=== PATIENT | male | born 1945 | race Caucasian/White ===

== ENCOUNTER 2022-03-27 11:55 | Day surgery (SDC) | payer OTHER, SELFPAY ==
[2022-03-27 12:10] VITALS: BP 130/96; PULSE 78; RESP 16; TEMP 36.7; O2SAT 100
--- NOTE | 2022-03-27 12:25 | W.ANESPRE ---
General Info Date of Service Date Performed: 03/27/22 Height: 5 ft 6 in Weight: 78.471 kg Body Mass Index (BMI): 27.9 Surgical Procedure: Operation Date: 03/27/22 15:40 Proposed Procedure Side Surgeon p Cataract Extraction with IOL Implant Left Daryn Rosa MD Meds Allergies and Home Medications Allergies Allergy/AdvReac Type Severity Reaction Status Date / Time codeine Allergy Severe Other (See Verified 03/27/22 12:08 Comment) spider venom Allergy Severe Anaphylaxis Verified 03/27/22 12:08 Home Medication Medication Instructions Recorded ascorbic acid (vitamin C) 1,000 mg 1 mg PO DAILY 03/23/22 capsule aspirin 81 mg tablet,delayed 81 mg PO DAILY 03/23/22 release folic acid 1 mg tablet 1 mg PO DAILY 03/23/22 furosemide 20 mg tablet 1 tab PO DAILY 03/23/22 levothyroxine 50 mcg tablet 1 tab PO DAILY 03/23/22 lisinopril 2.5 mg tablet 1 tab PO DAILY 03/23/22 lorazepam 1 mg tablet 1 - 2 tab PO DIRECTED 03/23/22 memantine 10 mg tablet 5 mg PO BID 03/23/22 metoprolol succinate 50 mg 1 tab PO DAILY 03/23/22 tablet,extended release 24 hr multivitamin 1 cap PO DAILY 03/23/22 potassium chloride 20 mEq 1 tab PO DAILY 03/23/22 tablet,extended release quetiapine 50 mg tablet 1 tab PO DIRECTED 03/23/22 Current Visit Medications: Current Medications Generic Name Dose Route Start Last Admin Trade Name Freq PRN Reason Stop Dose Admin Acetaminophen 1,000 mg 03/27/22 06:00 Acetaminophen 500 Mg Tab PO Q4H PRN PRN Miscellaneous Medication 0 ml 03/27/22 06:00 Prednisolone 1%, Moxifloxacin 0.5%, Nepafenac 0.1% 5ml Btl OS DIRECTED [facility] Miscellaneous Medication 0 ml 03/27/22 06:00 Tropicam./Phenyleph. (1/2.5%) 5 Ml Btl OS DIRECTED [facility] Tetracaine HCl 0 ml 03/27/22 06:00 Tetracaine 0.5% 4 Ml Btl OS DIRECTED [facility] Medical History Medical History Alcoholism Anemia of chronic disease Esophageal reflux Finger fracture, left Foot fracture, left History of GI bleed HTN (hypertension) Infection of right prosthetic hip joint Osteoarthritis Surgical History Surgical History H/O right inguinal hernia repair History of total hip replacement Tobacco Smoking/Tobacco Use Status: Former Tobacco Use Alcohol Alcohol Intake: current Alcohol intake frequency: 0-2 drinks per day Alcohol type: beer Substance Use Substance use: Daily Substance use type: marijuana Vital Signs and Lab Results Vital Signs Most Recent Vital Signs in EMR: Most Recent Vital Signs Temp Pulse Resp BP Pulse Ox 36.7 C 78 16 130/96 H 100 03/27/22 12:10 03/27/22 12:10 03/27/22 12:10 03/27/22 12:10 03/27/22 12:10 Lab Results Blood Type / Crossmatch: No Data to Display Complete Blood Count: No Data to Display Complete Metabolic Panel: No Data to Display Liver Function Panel: No Data to Display Coagulation Panel: No Data to Display Cardiac Panel: No Data to Display Arterial Blood Gas: No Data to Display Venous Blood Gas: No Data to Display Pancreas Panel: No Data to Display Thyroid Panel: No Data to Display Infectious Disease: No Data to Display Blood Cultures: No Data to Display Toxicology Panel: No Data to Display Anesthesia Assessment and Plan Anesthesia History Personal History: No History of Anesthesia Complications Family History: No Family History of Anesthesia Complications Exercise Tolerance Exercise Tolerance: Metabolic Equivalents>4 Pertinent Negatives Pertinent Negatives: No Symptoms of GERD Cardiac & Pulmonary Exam Cardiac Exam: Normal S1/S2 Heart Sounds Pulmonary Exam: Clear Bilateral Breath Sounds Implantable Cardiac Device Does patient have a Pacemaker or an ICD?: No Airway Exam Known Difficult Airway: No Mallampati Class: 3 Mouth Opening: Normal (> 3cm) Thyromental Distance: Greater than 3 cm Facial Hair: Full Shine Neck Range of Motion: Full ROM Neck Circumference: Normal Teeth Condition: Edentulous ASA Classification ASA Score: ASA 2 Emergency Case?: No NPO Status NPO Status: NPO Clears >2 hours, Solids >8 hours Anesthesia Plan Resuscitation Status: Full Code Anesthesia Technique: MAC Anesthesia Airway Planned: Natural Airway Monitors Used: Standard Monitors
[2022-03-27] MEDS: Tropicam./Phenyleph. (1/2.5%) 5 ML BTL OS ×3 (12:28→12:43)
[2022-03-27 12:39] VITALS: BMI 27.9
[2022-03-27] MEDS: Tetracaine 0.5% 4 ML BTL OS (12:44)
[2022-03-27] MEDS: Povidone-Iodine Ophth 30 ML BTL (12:45)
[2022-03-27] MEDS: Lidocaine 2% Jelly 6 ML SYR (12:46)
[2022-03-27] MEDS: Duovisc Viscoelastic System EACH 1 EACH (12:52)
[2022-03-27] MEDS: Balanced Salt Soln.-PLUS 500 ML BAG (12:52)
[2022-03-27] MEDS: Trypan Blue 0.06% 0.5 ML SYR (12:53)
[2022-03-27 13:25] VITALS: BP 93/77; PULSE 61; RESP 18; TEMP 36.3; O2SAT 98
--- NOTE | 2022-03-27 13:26 | W.PM.DSUDISC ---
Discharge Plan Disposition Patient Disposition: HOME Condition: Good Discharge Details Attending Provider: Daryn Rosa Primary Care Provider: Domitila Berry Home Meds and New Rx's Prescriptions: No Action metoprolol succinate 50 mg tablet extended release 24 hr 1 tab PO DAILY Label Comments: TAKE 1 TABLET BY MOUTH ONCE DAILY aspirin [Aspir-81] 81 mg Tablet,Delayed Release (Dr/Ec) 81 mg PO DAILY levothyroxine 50 mcg tablet 1 tab PO DAILY Label Comments: TAKE 1 TABLET BY MOUTH ONCE DAILY IN THE MORNING ON AN EMPTY STOMACH folic acid 1 mg Tablet 1 mg PO DAILY furosemide 20 mg tablet 1 tab PO DAILY Label Comments: TAKE 1 TABLET BY MOUTH ONCE DAILY lorazepam 1 mg tablet 1 - 2 tab PO DIRECTED Label Comments: TAKE 1 TO 2 TABLETS BY MOUTH 30 MINUTES PRIOR TO MRI multivitamin Capsule 1 cap PO DAILY lisinopril 2.5 mg tablet 1 tab PO DAILY Label Comments: TAKE 1 TABLET BY MOUTH ONCE DAILY memantine 10 mg tablet 5 mg PO BID Label Comments: TAKE 1 TABLET BY MOUTH TWICE DAILY quetiapine 50 mg tablet 1 tab PO DIRECTED Label Comments: TAKE 1 TABLET BY MOUTH IN THE MORNING AND 2 IN THE EVENING potassium chloride 20 mEq tablet extended release 1 tab PO DAILY Label Comments: TAKE 1 TABLET BY MOUTH ONCE DAILY WITH FOOD ascorbic acid (vitamin C) 1,000 mg Capsule 1 mg PO DAILY Discharge Instructions Stand Alone Forms: Post-op Topical Cataract, Danisha Metz ([facility]) Discharge Orders Discharge Orders: Discharge Order (Routine); Ordered 03/27/22 Ordered By: Daryn Rosa DS: Diagnosis Discharge Diagnosis (1) Nuclear sclerotic cataract of left eye: Status: Resolved
--- NOTE | 2022-03-27 13:27 | W.PM.OP ---
Date of service: 03/27/22 Time of Service: 13:43 Operative Note Operative Note DATE OF PROCEDURE: 03/27/22 PRE-OP DIAGNOSIS: Dense nuclear cataract, left eye Poor red reflex, left eye secondary to cataract POST-OP DIAGNOSIS: same Severe generalized zonular laxity, left eye PROCEDURE: Cataract extraction using phacoemulsification with intraocular lens implant, left eye, using capsular staining with Vision Blue Insertion of capsular tension ring SURGEON: Daryn Rosa ANESTHESIA TYPE: Local By Surgeon and MAC Refer to Anesthesia Record COMPLICATIONS: None Patient was transported to: same day Patient's condition: stable Implants: Jony [employer]ony / [employer] Tecnis [id number] Morcher Type 15 capsular tension ring Indications: Progressive decreased vision due to cataract, left eye, with poor red reflex Procedure Description: CATARACT SURGERY OPERATIVE REPORT PREOPERATIVE DIAGNOSIS: 1. Dense nuclear cataract, left eye 2. Poor red reflex secondary to #1 POSTOPERATIVE DIAGNOSIS: Same OPERATION: 1. Cataract extraction using phacoemulsification with posterior chamber intraocular lens implant, left eye. 2. Capsular staining with Vision Blue 3. Insertion of capsular tension ring IOL: IOL Agency Sales Development Associate/Model: Jony & Jony / LD Tecnis [id number] IOL Power: + 22.0 diopters IOL Serial Number: [id number] Optic Diameter: 6.0 mm Haptic/Overall Diameter: 13.0 mm PHACO INFO: Byron [employer]urion Vision System with OZil and Active Fluidics Cumulative Dispersed Energy (CDE): 27.93 seconds SURGEON: Daryn Rosa MD, FRANKI ANESTHESIA: Monitored A [facility] (MAC), with local sub-tenon's anesthetic infiltration COMPLICATIONS: None SPECIMENS: None INDICATIONS FOR PROCEDURE: The patient is a 76-year-old male with history of progressive decreased vision in both eyes secondary to the development of dense bilateral cataracts. Visual acuity is hand motions in the right eye, 20/200 in the left eye. The option of cataract surgery was offered to the patient and he felt he was symptomatic enough he wished to proceed. PROCEDURE: The correct surgical eye was identified and marked as the left eye and the pupil was dilated in the preoperative area using mydriatics and cycloplegics. The dilated pupil size was 5.0 mm. Oral sedation was administered in the form of an Imprimis MKO Melt (midazolam 3mg/ketamine 25mg/ondansetron 2mg). The patient was brought to the operating room where cardiopulmonary monitoring was instituted and surgical time-out was performed, confirming the correct operative eye and IOL power. Topical anesthesia was administered and ophthalmic povidone-iodine 5% was instilled into the conjunctival fornices. Lidocaine gel was applied to the cornea and the rufino-ocular area was prepped with Betadine 10% solution and draped in the usual sterile fashion for intraocular surgery, including an aperture drape. A Tegaderm transparent film dressing was cut in half and used to cover the lashes and lid margins. Care was taken to sequester the lashes and lid margins under the Tegaderm dressing. A lid speculum was placed between the lids of the operative eye and the Byron Lux[employer] Revalia operating microscope was maneuvered into position. Jd scissors were then used to make a conjunctival buttonhole approximately 6mm posterior to the limbus in the inferonasal quadrant. Blunt dissection was carried out to expose bare sclera, and a blunt-tipped sub-tenon?s anesthesia cannula was introduced and passed posteriorly along the globe where non-preserved plain lidocaine was injected into posterior sub-Tenon?s space. A sideport knife was used to make a paracentesis port superiorly/superiortemporally. Intraocular phenylephrine/lidocaine was injected int the anterior chamber.. Air was then injected into the anterior chamber, followed by Vision Blue, which was painted over the anterior capsule and then irrigated out using BSS. The anterior chamber was filled with viscoelastic. Viscoat was used to protect the corneal endothelium. A keratome knife was used to create a 2-plane near clear corneal tunnel extending approximately 2 mm into clear cornea temporally. A flap was raised on the anterior capsule and capsulorhexis forceps were used to complete a continuous curvilinear capsulorhexis of 5.0 mm. Significant generalized zonular laxity was noted. Balanced salt solution was then used to perform cortical cleaving hydrodissection and nuclear hydrodelineation until the lens could be freely rotated within the capsular bag. The lens nucleus was then disassembled and removed within the capsular bag and iris plane using phacoemulsification. Additional Viscoat was injected intermittently to protect the corneal endothelium due to the dense cataract residual cortical material was removed using the 45-degree angled silicone I/A tip with 0.3mm port. The posterior capsule was carefully polished to remove as much residual lens epithelial cells as safely possible. The capsular bag was then inflated and the anterior chamber deepened with viscoelastic. A Morcher Type 15 capsular tension ring was then inserted into the capsular bag without difficulty. The lens implant described above was inserted into the capsular bag using the [employer] [place] Injector. A Kuglen hook was used to dial the IOL into position. Residual viscoelastic was then removed first from posterior to the IOL, then from the anterior chamber using the I/A handpiece. The lens implant was noted to center nicely within the capsular bag. The incisions were stromally hydrated, and the anterior chamber was reformed using BSS. Then 0.5cc of moxifloxacin 1.0mg/ml were injected into the capsular bag and anterior chamber. The incisions were checked with a Weck spear and found to be secure. Several drops of ophthalmic povidone-iodine 5% were then applied to the eye followed by two drops of Imprimis combination prednisolone/moxifloxacin/nepafenac solution. The drapes were removed and a clear plastic protective eye shield was placed over the eye. The patient was then returned to Same Day Surgery in stable condition.
--- NOTE | 2022-03-27 13:43 | W.ANESPOSTOP ---
Postoperative Evaluation Date, Time and Location Date Performed: 03/27/22 Time Performed: 13:45 Patient Location: Day Surgery Unit Vital Signs Most Recent Imported Vital Signs: Most Recent Vital Signs Temp Pulse Resp BP Pulse Ox 36.7 C 78 16 130/96 H 100 03/27/22 12:10 03/27/22 12:10 03/27/22 12:10 03/27/22 12:10 03/27/22 12:10 Most Recent Manually Entered Vital Signs: Adult Blood Pressure: 93/77 Heart Rate: 61 Respirations: 18 Oxygen Saturation (%): 98 Temperature (C): 36.3 C Pain Score (0-10 Scale): 0 Pain Score Most Recent Pain Score: Most Recent Pain Score Pain Level 0 03/27/22 12:10 Assessment Mental Status: Awake (Alert & Oriented to Patient Baseline) Airway and Respiratory Function: Patent airway with normal (patient baseline) respiratory exam Cardiovascular Function: Hemodynamically Stable Hydration Status: Adequately Hydrated Nausea & Vomiting: No Nausea or Vomiting Pain: Pt. Denies Any Pain Peripheral Nerve Block: Patient did not receive a nerve block
[2022-03-27 13:48] VITALS: BP 93/77; PULSE 61; RESP 18; TEMPC 36.3; O2SAT 98
[2022-03-27 13:50] VITALS: BP 109/67; PULSE 58; RESP 16; TEMP 36; O2SAT 100
== END 2022-03-27 14:08 | disposition home or self-care (01) ==
PROVIDERS: PCP Family Medicine; Referring Provider Optometrist; Visit Provider Ophthalmology
PROC: (CPT 66982; principal; 2022-03-27 15:30)
DX: H25.12 Age-related nuclear cataract, left eye (principal); H26.8 Other specified cataract
CPT/HCPCS: 66982; V2632

== ENCOUNTER 2022-04-10 10:23 | Day surgery (SDC) | payer OTHER, SELFPAY ==
[2022-04-10] VITALS (9 sets, daily range): BP systolic 108–152; BP diastolic 49–92; PULSE 58–66; RESP 13–18; TEMP 36.1–36.6; O2SAT 98–100; BMI 32.0
[2022-04-10 10:56] LABS: Source Nasal/Nares
[2022-04-10] MEDS: Tropicam./Phenyleph. (1/2.5%) 5 ML BTL OD ×3 (11:02→11:28)
[2022-04-10] MEDS: Lactated Ringers 1,000 ML 30 ML IV (11:25)
[2022-04-10 11:31] LABS: COVID-19 PCR Negative (Negative)
--- NOTE | 2022-04-10 11:41 | ANES.PREOP_ITS ---
General Info Date of Service Date Performed: 04/10/22 Height: 5 ft 2 in Weight: 79.4 kg Body Mass Index (BMI): 32.0 Surgical Procedure: Operation Date: 04/10/22 13:40 Proposed Procedure Side Surgeon p Cataract Extraction with IOL Implant Right Daryn Rosa MD Meds Allergies and Home Medications Allergies Allergy/AdvReac Type Severity Reaction Status Date / Time spider venom Allergy Severe Anaphylaxis Verified 04/10/22 11:04 codeine AdvReac Severe Upset Verified 04/10/22 11:04 stomach pain Home Medication Medication Instructions Recorded ascorbic acid (vitamin C) 1,000 mg 1 mg PO DAILY 03/23/22 capsule aspirin 81 mg tablet,delayed 81 mg PO DAILY 03/23/22 release folic acid 1 mg tablet 1 mg PO DAILY 03/23/22 furosemide 20 mg tablet 1 tab PO DAILY 03/23/22 levothyroxine 50 mcg tablet 1 tab PO DAILY 03/23/22 lisinopril 2.5 mg tablet 1 tab PO DAILY 03/23/22 lorazepam 1 mg tablet 1 - 2 tab PO DIRECTED 03/23/22 memantine 10 mg tablet 5 mg PO BID 03/23/22 metoprolol succinate 50 mg 1 tab PO DAILY 03/23/22 tablet,extended release 24 hr multivitamin 1 cap PO DAILY 03/23/22 potassium chloride 20 mEq 1 tab PO DAILY 03/23/22 tablet,extended release quetiapine 50 mg tablet 1 tab PO DIRECTED 03/23/22 Current Visit Medications: Current Medications Generic Name Dose Route Start Last Admin Trade Name Freq PRN Reason Stop Dose Admin Acetaminophen 1,000 mg 04/10/22 06:00 Acetaminophen 500 Mg Tab PO Q4H PRN PRN Ringer's Solution 1,000 mls @ 30 mls/hr 04/10/22 10:45 04/10/22 11:25 IV 30 mls/hr INFUSION SIMEON Administration Miscellaneous Medication 0 ml 04/10/22 06:00 Prednisolone 1%, Moxifloxacin 0.5%, Nepafenac 0.1% 5ml Btl OD DIRECTED [facility] Miscellaneous Medication 0 ml 04/10/22 06:00 04/10/22 11:28 Tropicam./Phenyleph. (1/2.5%) 5 Ml Btl OD 1 drp DIRECTED SIMEON Administration Tetracaine HCl 0 ml 04/10/22 06:00 Tetracaine 0.5% 4 Ml Btl OD DIRECTED [facility] Active Problems Active Problems: Problem Status Onset Code Nuclear sclerotic cataract of left eye H25.12 Medical History Medical History Alcoholism Anemia of chronic disease Esophageal reflux Finger fracture, left Foot fracture, left History of GI bleed HTN (hypertension) Infection of right prosthetic hip joint Osteoarthritis Surgical History Surgical History H/O right inguinal hernia repair History of total hip replacement Tobacco Smoking/Tobacco Use Status: Former Tobacco Use Alcohol Alcohol Intake: current Alcohol intake frequency: 0-2 drinks per day Alcohol type: beer Substance Use Substance use: Daily Substance use type: marijuana Vital Signs and Lab Results Vital Signs Most Recent Vital Signs in EMR: Most Recent Vital Signs Temp Pulse Resp BP Pulse Ox 36.2 C L 63 14 114/64 99 04/10/22 10:54 04/10/22 10:54 04/10/22 10:54 04/10/22 10:54 04/10/22 10:54 Lab Results Blood Type / Crossmatch: No Data to Display Complete Blood Count: No Data to Display Complete Metabolic Panel: No Data to Display Liver Function Panel: No Data to Display Coagulation Panel: No Data to Display Cardiac Panel: No Data to Display Arterial Blood Gas: No Data to Display Venous Blood Gas: No Data to Display Pancreas Panel: No Data to Display Thyroid Panel: No Data to Display Infectious Disease: Coronavirus (COVID-19)(PCR) Negative (Negative) 04/10/22 10:45 Coronavirus 2019 Source Nasal/Nares 04/10/22 10:45 Blood Cultures: No Data to Display Toxicology Panel: No Data to Display Anesthesia Assessment and Plan Anesthesia History Personal History: No History of Anesthesia Complications Family History: No Family History of Anesthesia Complications Exercise Tolerance Exercise Tolerance: Metabolic Equivalents>4 Pertinent Negatives Pertinent Negatives: No Major Cardiovascular Symptoms or Complaints and No Major Pulmonary Symptoms or Complaints Cardiac & Pulmonary Exam Cardiac Exam: Normal S1/S2 Heart Sounds Pulmonary Exam: Clear Bilateral Breath Sounds Implantable Cardiac Device Does patient have a Pacemaker or an ICD?: No Airway Exam Known Difficult Airway: No Mallampati Class: 3 Mouth Opening: Normal (> 3cm) Thyromental Distance: Greater than 3 cm Neck Range of Motion: Full ROM Neck Circumference: Normal Teeth Condition: Edentulous ASA Classification ASA Score: ASA 3 Emergency Case?: No NPO Status NPO Status: NPO Clears >2 hours, Solids >8 hours Anesthesia Plan Resuscitation Status: Full Code Anesthesia Technique: General Anesthesia Airway Planned: Natural Airway Monitors Used: Standard Monitors
[2022-04-10] MEDS: Tetracaine 0.5% 4 ML BTL OD (12:21)
[2022-04-10] MEDS: Balanced Salt Soln.-PLUS 500 ML BAG (12:21)
[2022-04-10] MEDS: Lidocaine 2% Jelly 6 ML SYR (12:22)
[2022-04-10] MEDS: Duovisc Viscoelastic System EACH 1 EACH ×5 (12:22→13:56)
[2022-04-10] MEDS: Povidone-Iodine Ophth 30 ML BTL (12:24)
[2022-04-10] MEDS: Trypan Blue 0.06% 0.5 ML SYR (12:34)
--- NOTE | 2022-04-10 14:54 | W.PM.DSUDISC ---
Discharge Plan Disposition Patient Disposition: HOME Condition: Good Discharge Details Reason For Visit: Cataract Attending Provider: Daryn Rosa Primary Care Provider: Domitila Berry Home Meds and New Rx's Prescriptions: No Action metoprolol succinate 50 mg tablet extended release 24 hr 1 tab PO DAILY Label Comments: TAKE 1 TABLET BY MOUTH ONCE DAILY aspirin [Aspir-81] 81 mg Tablet,Delayed Release (Dr/Ec) 81 mg PO DAILY levothyroxine 50 mcg tablet 1 tab PO DAILY Label Comments: TAKE 1 TABLET BY MOUTH ONCE DAILY IN THE MORNING ON AN EMPTY STOMACH folic acid 1 mg Tablet 1 mg PO DAILY furosemide 20 mg tablet 1 tab PO DAILY Label Comments: TAKE 1 TABLET BY MOUTH ONCE DAILY lorazepam 1 mg tablet 1 - 2 tab PO DIRECTED Label Comments: TAKE 1 TO 2 TABLETS BY MOUTH 30 MINUTES PRIOR TO MRI multivitamin Capsule 1 cap PO DAILY lisinopril 2.5 mg tablet 1 tab PO DAILY Label Comments: TAKE 1 TABLET BY MOUTH ONCE DAILY memantine 10 mg tablet 5 mg PO BID Label Comments: TAKE 1 TABLET BY MOUTH TWICE DAILY quetiapine 50 mg tablet 1 tab PO DIRECTED Label Comments: TAKE 1 TABLET BY MOUTH IN THE MORNING AND 2 IN THE EVENING potassium chloride 20 mEq tablet extended release 1 tab PO DAILY Label Comments: TAKE 1 TABLET BY MOUTH ONCE DAILY WITH FOOD ascorbic acid (vitamin C) 1,000 mg Capsule 1 mg PO DAILY Discharge Instructions Stand Alone Forms: Post-op Topical Cataract, Danisha Metz ([facility]) Discharge Orders Discharge Orders: Discharge Order (Routine); Ordered 04/10/22 Ordered By: Daryn Rosa DS: Diagnosis Discharge Diagnosis (1) Nuclear sclerotic cataract of right eye: Status: Resolved
--- NOTE | 2022-04-10 14:55 | W.PM.OP ---
Date of service: 04/10/22 Time of Service: 14:56 Operative Note Operative Note DATE OF PROCEDURE: 04/10/22 PRE-OP DIAGNOSIS: Dense mature nuclear cataract, right eye Absent red reflex, right eye POST-OP DIAGNOSIS: same PROCEDURE: Manual small incision cataract surgery, right eye, using capsular staining with Vision Blue SURGEON: Daryn Rosa ANESTHESIA TYPE: Local By Surgeon and MAC Refer to Anesthesia Record PATHOLOGY: none sent COMPLICATIONS: None Patient was transported to: same day Patient's condition: stable Implants: None Indications: Progressive visual loss due to cataract, right eye Findings: Hypermature dense brown cataract, right eye Procedure Description: CATARACT SURGERY OPERATIVE REPORT PREOPERATIVE DIAGNOSIS: 1. Dense, hypermature brunescent cataract, right eye 2. Poor red reflex secondary to #1 POSTOPERATIVE DIAGNOSIS: Same OPERATION: 1. Manual small incision cataract extraction, right eye, without implant 2. 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 SPECIMENS: None INDICATIONS FOR PROCEDURE: The patient is a 76-year-old gentleman who recently presented with advanced bilateral cataracts, right eye worse than left. He underwent phacoemulsification cataract surgery in the left eye 2 weeks ago and is doing well postoperatively. He now presents for planned manual small incision cataract surgery of the right eye. The right cataract is a very dense brunescent cataract and phacoemulsification that would likely cause significant corneal endothelial decompensation due to extended phaco time. PROCEDURE: The correct surgical eye was identified and marked as the right eye and the pupil was dilated in the preoperative area using mydriatics and cycloplegics. The dilated pupil size was 6.0 mm. The patient was brought to the operating room where cardiopulmonary monitoring was instituted and general/LMA anesthesia instituted. Topical anesthesia was administered and ophthalmic povidone-iodine 5% was instilled into the conjunctival fornices. Lidocaine gel was applied to the cornea and the rufino-ocular area was prepped with Betadine 10% solution and draped in the usual sterile fashion for intraocular surgery, including an aperture drape. A Tegaderm transparent film dressing was cut in half and used to cover the lashes and lid margins. Care was taken to sequester the lashes and lid margins under the Tegaderm dressing. A lid speculum was placed between the lids of the operative eye and the Byron [employer] operating microscope was maneuvered into position. Jd scissors were then used to make a conjunctival buttonhole approximately 6mm posterior to the limbus in the inferonasal quadrant. Blunt dissection was carried out to expose bare sclera, and a blunt-tipped sub-tenon?s anesthesia cannula was introduced and passed posteriorly along the globe where a 50-50 mixture of non-preserved plain lidocaine 1% with ropivacaine 0.5% and the volume of 3 cc was injected into posterior sub-Tenon?s space. Dino scissors and forceps were then used to create a large conjunctival peritomy temporally from the 11 o'clock position to the 7 o'clock position. Hemostasis was obtained using bipolar cautery. A temporal approach was chosen due to the patient's 1.5 diopters of against the rule astigmatism. A crescent blade was used to make a straight half-thickness groove approximately 7 mm in length with the closest portion of the groove approximately 1 mm posterior to the limbus at the 9 o'clock position. The crescent blade was then used to construct a half-thickness scleral corneal tunnel, trapezoidal in shape, extending approximately 1 mm into clear cornea. The inner diameter of the trapezoidal incision was approximately 9 mm. A side-port knife was then used to create a paracentesis at the 12 o'clock position in the 6 o'clock position. Air was injected into the anterior chamber, followed by VisionBlue, which was painted over the anterior lens capsule and then irrigated out with intraocular phenylephrine/lidocaine. A 2.5 mm keratome knife was then used to enter the anterior chamber through the scleral corneal tunnel. A cystotome was used to raise a flap on the anterior capsule, and capsulorhexis forceps were then used to create a continuous curvilinear capsulorhexis of 5 mm in diameter.. Gentle [place] dissection was slowly carried out until the lens could be rotated within the capsular bag. There was essentially no cortical material, just a very large dense brown nucleus. Multiple attempts were made to prolapse the nucleus into the anterior chamber which were unsuccessful. Visco dissection was done in attempt to prolapse the nucleus through the capsulorrhexis, which was also unsuccessful. Multiple attempts at dilating the nucleus out of the capsular bag with [place] dissection, viscoelastic, and bimanual technique were unsuccessful. The iris was quite floppy and prolapsed out of the incision multiple times, and had to be reposited gently. Eventually, I was able to prolapse 1 pole of the nucleus out of the capsular bag, and dilute into the anterior chamber. Abundant Viscoat was used both posterior and anterior to the lens. A lens loop was then used in attempt to remove the dense nucleus, but was unsuccessful, as the nucleus became lodged in the incision. The nucleus was then repositioned within the anterior chamber with additional viscoelastic. A crescent blade was used to enlarge the internal lip of the wound to approximately 10 mm and a second attempt was made to prolapse the nucleus out of the eye using the lens loop, again unsuccessful. The nucleus was then repository into the anterior chamber using additional viscoelastic. The incision was then enlarged again, and the lens loop was introduced behind the nucleus, with a Kuglen hook in front, using a sandwich technique. Finally, the nucleus was able to be extracted from the eye, although significant amount of temporal iris came with it. Residual iris was deposited into the anterior chamber, which was filled with Provisc. A 10-0 nylon X type suture was used to close the superior temporal portion of the incision. Bimanual irrigation and aspiration was carried out using the 6 and 12:00 paracentesis ports, however the main incision was still leaking inferiorly. 2 interrupted 10-0 nylon sutures were then placed there. At this point, the view of the anterior chamber and capsule was poor, the anterior capsulorrhexis could not be identified. We elected not to place an intraocular lens at this point, but to close the eye and allow it to heal and return to the OR for secondary IOL. The main incision was checked to ensure it was watertight. Bimanual irrigation-aspiration was then carried out to remove as much remaining viscoelastic as possible. Miostat was then injected into the anterior chamber. The conjunctiva was then closed using 2 buried 8-0 Vicryl suture at the superior margin of the peritomy in the inferior margin. The patient had a significant subconjunctival hemorrhage temporally. the anterior chamber was reformed using BSS. Then 0.5cc of moxifloxacin 1.0mg/ml were injected into the capsular bag and anterior chamber. The incisions were checked with a Weck spear and found to be secure. Several drops of ophthalmic povidone-iodine 5% were then applied to the eye followed by two drops of Imprimis combination prednisolone/moxifloxacin/nepafenac solution. The drapes were removed and a clear plastic protective eye shield was placed over the eye. The patient was then returned to Same Day Surgery in stable condition.
--- NOTE | 2022-04-10 15:26 | W.ANESPOSTOP ---
Postoperative Evaluation Date, Time and Location Date Performed: 04/10/22 Time Performed: 15:27 Patient Location: PACU Vital Signs Most Recent Imported Vital Signs: Most Recent Vital Signs Temp Pulse Resp BP Pulse Ox 36.6 C 60 18 111/63 100 04/10/22 15:10 04/10/22 15:19 04/10/22 15:19 04/10/22 15:19 04/10/22 15:19 Pain Score Most Recent Pain Score: Most Recent Pain Score Pain Level 0 04/10/22 15:19 Assessment Mental Status: Awake (Alert & Oriented to Patient Baseline) Airway and Respiratory Function: Patent airway with normal (patient baseline) respiratory exam Cardiovascular Function: Hemodynamically Stable Hydration Status: Adequately Hydrated Nausea & Vomiting: No Nausea or Vomiting Pain: Pt. Denies Any Pain Peripheral Nerve Block: Patient did not receive a nerve block
== END 2022-04-10 17:14 | disposition home or self-care (01) ==
PROVIDERS: PCP Family Medicine; Visit Provider Ophthalmology
PROC: (CPT 66982; principal; 2022-04-10 13:30)
DX: H25.11 Age-related nuclear cataract, right eye (principal); I10 Essential (primary) hypertension; H26.8 Other specified cataract
CPT/HCPCS: 66982; 87635; J1100; J2405; J2704

== ENCOUNTER 2022-06-09 10:53 | Day surgery (SDC) | payer OTHER, SELFPAY ==
[2022-06-09 11:18] VITALS: BP 142/63; PULSE 66; RESP 16; TEMP 36.5; O2SAT 99
[2022-06-09] MEDS: Tropicam./Phenyleph. (1/2.5%) 5 ML BTL OD ×3 (11:29→11:41)
--- NOTE | 2022-06-09 11:35 | W.ANESPRE ---
General Info Date of Service Date Performed: 06/09/22 Height: 5 ft 6 in Weight: 81.5 kg Body Mass Index (BMI): 29.0 Surgical Procedure: Operation Date: 06/09/22 14:40 Proposed Procedure Side Surgeon p Secondary IOL Implant Right Daryn Rosa MD Meds Allergies and Home Medications Allergies Allergy/AdvReac Type Severity Reaction Status Date / Time spider venom Allergy Severe Anaphylaxis Verified 06/07/22 12:10 codeine AdvReac Severe Upset Verified 06/07/22 12:10 stomach pain Home Medication Medication Instructions Recorded ascorbic acid (vitamin C) 1,000 mg 1 mg PO DAILY 03/23/22 capsule aspirin 81 mg tablet,delayed 81 mg PO DAILY 03/23/22 release folic acid 1 mg tablet 1 mg PO DAILY 03/23/22 furosemide 20 mg tablet 1 tab PO DAILY 03/23/22 levothyroxine 50 mcg tablet 1 tab PO DAILY 03/23/22 lisinopril 2.5 mg tablet 1 tab PO DAILY 03/23/22 lorazepam 1 mg tablet 1 - 2 tab PO DIRECTED 03/23/22 memantine 10 mg tablet 5 mg PO BID 03/23/22 metoprolol succinate 50 mg 1 tab PO DAILY 03/23/22 tablet,extended release 24 hr multivitamin 1 cap PO DAILY 03/23/22 potassium chloride 20 mEq 1 tab PO DAILY 03/23/22 tablet,extended release quetiapine 50 mg tablet 1 tab PO DIRECTED 03/23/22 Current Visit Medications: Current Medications Generic Name Dose Route Start Last Admin Trade Name Freq PRN Reason Stop Dose Admin Acetaminophen 1,000 mg 06/09/22 06:00 Acetaminophen 500 Mg Tab PO Q4H PRN PRN Miscellaneous Medication 0 ml 06/09/22 06:00 Prednisolone 1%, Moxifloxacin 0.5%, Nepafenac 0.1% 5ml Btl OD DIRECTED [facility] Miscellaneous Medication 0 ml 06/09/22 06:00 06/09/22 11:29 Tropicam./Phenyleph. (1/2.5%) 5 Ml Btl OD 1 drp DIRECTED SIMEON Administration Tetracaine HCl 0 ml 06/09/22 06:00 Tetracaine 0.5% 4 Ml Btl OD DIRECTED [facility] PFSH Active Problems Active Problems: Problem Status Onset Code Nuclear sclerotic cataract of left eye H25.12 Nuclear sclerotic cataract of right eye H25.11 Medical History Medical History (Updated 06/09/22 @ 11:39 by Pj Cook CRNA) Alcoholism Anemia of chronic disease Atrial fibrillation History of, on elaquis Esophageal reflux Finger fracture, left Foot fracture, left History of dementia History of GI bleed History of hypothyroidism HTN (hypertension) Hx of chronic kidney disease stage 3 Hx of congestive heart failure systolic Hx of essential hypertension Infection of right prosthetic hip joint Osteoarthritis Medical History Comments:: Per partner Kenzie: 05/23/22 Covid negative; last sx 06/02, cough/phglem/ fatigue, Dx mild pneumo on 05/23 at urgent care with 7day course doxycline and benzonatate PRN; marijauna every other day Surgical History Surgical History H/O right inguinal hernia repair History of total hip replacement Tobacco Smoking/Tobacco Use Status: Former Tobacco Use Alcohol Alcohol Intake: current Alcohol intake frequency: 0-2 drinks per day Alcohol type: beer Substance Use Substance use: Daily Substance use type: marijuana Vital Signs and Lab Results Vital Signs Most Recent Vital Signs in EMR: Most Recent Vital Signs Temp Pulse Resp BP Pulse Ox 36.5 C 66 16 142/63 H 99 06/09/22 11:18 06/09/22 11:18 06/09/22 11:18 06/09/22 11:18 06/09/22 11:18 Lab Results Blood Type / Crossmatch: No Data to Display Complete Blood Count: No Data to Display Complete Metabolic Panel: No Data to Display Liver Function Panel: No Data to Display Coagulation Panel: No Data to Display Cardiac Panel: No Data to Display Arterial Blood Gas: No Data to Display Venous Blood Gas: No Data to Display Pancreas Panel: No Data to Display Thyroid Panel: No Data to Display Infectious Disease: No Data to Display Blood Cultures: No Data to Display Toxicology Panel: No Data to Display Imaging and Studies Imaging and Studies Study information below may be from another EMR and interpreted by another provider. Please see original notes in EMR for more complete details. EKG Summary: 09/23/21: A-Fib, Rate 77 Echocardiogram Summary: 03/31/21: LRH: EF 50-55%, Mild MR Anesthesia Assessment and Plan Anesthesia History Personal History: No History of Anesthesia Complications Family History: No Family History of Anesthesia Complications Exercise Tolerance Exercise Tolerance: Metabolic Equivalents>4 Pertinent Negatives Pertinent Negatives: No Symptoms of GERD, No Major Pulmonary Symptoms or Complaints and No History of CVA/TIA Cardiac & Pulmonary Exam Cardiac Exam: Other Pulmonary Exam: Clear Bilateral Breath Sounds Implantable Cardiac Device Does patient have a Pacemaker or an ICD?: No Airway Exam Known Difficult Airway: No Mallampati Class: 3 Mouth Opening: Normal (> 3cm) Thyromental Distance: Greater than 3 cm Neck Range of Motion: Full ROM Neck Circumference: Normal Teeth Condition: Edentulous ASA Classification ASA Score: ASA 3 Emergency Case?: No NPO Status NPO Status: NPO Clears >2 hours, Solids >8 hours Anesthesia Plan Resuscitation Status: Full Code Anesthesia Technique: MAC Anesthesia Airway Planned: Natural Airway Monitors Used: Standard Monitors Preoperative Comments:: Pt. states not taking elaquis for A-Fib. Last cardiology note early 2021 said he was taking it. He will followup Nov 4th with cardiology to confirm whether he should or should not be on this.
[2022-06-09 12:28] VITALS: BMI 29.0
--- NOTE | 2022-06-09 12:59 | W.PREOPHP ---
Assessment and Plan Assessment and plan (1) Aphakia of right eye: Status: Acute Assessment and plan: Assessment: Surgical aphakia of the right eye, status post manual extraction of a dense mature cataract of the right eye without intraocular lens implantation. Plan. Secondary intraocular lens implantation of the right eye. History of Present Illness History of Present Illness Chief Complaint: Blurred vision, right eye Narrative: The patient is a 76-year-old gentleman with history of advanced mature cataract of the right eye who underwent cataract extraction via manual small incision cataract surgery on 04/10/2022. Intraocular lens implant was not placed at the time due to the extended length of the surgery and poor view. He has now aphakic, approximately 2 months postop and presents for secondary intraocular lens implant of the right eye. Review of Systems All systems reviewed & are unremarkable except as noted in HPI and below PFSH All Active Problems (Updated 06/09/22 @ 13:05 by Daryn Rosa MD) Aphakia of right eye (Acute) Medical History Alcoholism Anemia of chronic disease Atrial fibrillation History of, on elaquis Esophageal reflux Finger fracture, left Foot fracture, left History of dementia History of GI bleed History of hypothyroidism HTN (hypertension) Hx of chronic kidney disease stage 3 Hx of congestive heart failure systolic Hx of essential hypertension Infection of right prosthetic hip joint Osteoarthritis Surgical History H/O right inguinal hernia repair History of total hip replacement Social History Smoking/Tobacco Use Status: Former Tobacco Use Quit Date: 08/13/99 Smoking risk assessment performed?: Yes Alcohol Intake: current Alcohol Intake frequency: 0-2 drinks per day Alcohol type: beer Drug use: Daily Substance use type: marijuana Additional Social history: unable to assess privately Meds Allergies and Home Medications Allergies Allergy/AdvReac Type Severity Reaction Status Date / Time spider venom Allergy Severe Anaphylaxis Verified 06/07/22 12:10 codeine AdvReac Severe Upset Verified 06/07/22 12:10 stomach pain Home Medications Medication Instructions Recorded Confirmed Type ascorbic acid (vitamin C) 1,000 mg 1 mg PO DAILY 03/23/22 06/07/22 History capsule aspirin 81 mg tablet,delayed 81 mg PO DAILY 03/23/22 06/07/22 History release folic acid 1 mg tablet 1 mg PO DAILY 03/23/22 06/07/22 History furosemide 20 mg tablet 1 tab PO DAILY 03/23/22 06/07/22 History levothyroxine 50 mcg tablet 1 tab PO DAILY 03/23/22 06/07/22 History lisinopril 2.5 mg tablet 1 tab PO DAILY 03/23/22 06/07/22 History lorazepam 1 mg tablet 1 - 2 tab PO DIRECTED 03/23/22 06/07/22 History memantine 10 mg tablet 5 mg PO BID 03/23/22 06/07/22 History metoprolol succinate 50 mg 1 tab PO DAILY 03/23/22 06/07/22 History tablet,extended release 24 hr multivitamin 1 cap PO DAILY 03/23/22 06/07/22 History potassium chloride 20 mEq 1 tab PO DAILY 03/23/22 06/07/22 History tablet,extended release quetiapine 50 mg tablet 1 tab PO DIRECTED 03/23/22 06/07/22 History Exam Narrative Exam Narrative: Uncorrected visual acuity in the right eye shows vision of counting fingers. Uncorrected visual acuity in the left eye is 2040. Intraocular pressure is 9 in the right eye. Slit-lamp examination of the right eye reveals 2+ corneal edema and folds. There are some conjunctival retraction temporally with scleral sutures present in the subconjunctival space. The pupil is irregular and peaked temporally. There is a very poor view of the posterior pole through the cornea and cloudy capsule. There appears to be a zonular dialysis temporally, approximately 2 clock hours. In the left eye there is a well-positioned PCIOL with clear posterior capsule. Funduscopic examination reveals disc cupping of 0.7 in the left eye. There is no view of the posterior pole in the left eye. Resp Auscultation: clear to auscultation bilaterally Cardio Rate: regular rate Rhythm: regular rhythm Results Last Vital Signs Temp 36.5 C 06/09/22 11:18 Pulse 66 06/09/22 11:18 Resp 16 06/09/22 11:18 BP 142/63 H 06/09/22 11:18 Pulse Ox 99 06/09/22 11:18
[2022-06-09] MEDS: Tetracaine 0.5% 4 ML BTL OD (13:16)
[2022-06-09] MEDS: Lidocaine 2% Jelly 6 ML SYR (13:17)
[2022-06-09] MEDS: Povidone-Iodine Ophth 30 ML BTL (13:17)
[2022-06-09] MEDS: Duovisc Viscoelastic System EACH 1 EACH (13:27)
[2022-06-09] MEDS: Balanced Salt Soln.-PLUS 500 ML BAG (13:27)
[2022-06-09] MEDS: Triamcinolone 40 MG/ML VIAL (13:30)
[2022-06-09 14:13] VITALS: BP 122/61; PULSE 60; RESP 16; TEMP 36.5; O2SAT 98
--- NOTE | 2022-06-09 14:14 | W.ANESPOSTOP ---
Postoperative Evaluation Date, Time and Location Date Performed: 06/09/22 Time Performed: 14:16 Patient Location: Day Surgery Unit Vital Signs Most Recent Imported Vital Signs: Most Recent Vital Signs Temp Pulse Resp BP Pulse Ox 36.5 C 66 16 142/63 H 99 06/09/22 11:18 06/09/22 11:18 06/09/22 11:18 06/09/22 11:18 06/09/22 11:18 Most Recent Manually Entered Vital Signs: Adult Blood Pressure: 122/61 Heart Rate: 60 Respirations: 18 Oxygen Saturation (%): 98 Temperature (C): 36.4 C Pain Score (0-10 Scale): 0 Pain Score Most Recent Pain Score: Most Recent Pain Score Pain Level 0 06/09/22 11:18 Assessment Mental Status: Awake (Alert & Oriented to Patient Baseline) Airway and Respiratory Function: Patent airway with normal (patient baseline) respiratory exam Cardiovascular Function: Hemodynamically Stable Hydration Status: Adequately Hydrated Nausea & Vomiting: No Nausea or Vomiting Pain: Pt. Denies Any Pain Peripheral Nerve Block: Patient did not receive a nerve block
[2022-06-09 14:15] VITALS: BP 122/61; PULSE 60; RESP 18; TEMPC 36.4; O2SAT 98
--- NOTE | 2022-06-09 14:22 | W.PM.DSUDISC ---
Date of service: 06/09/22 Time of Service: 14:24 Discharge Plan Disposition Patient Disposition: HOME Condition: Good Discharge Details Attending Provider: Daryn Rosa Primary Care Provider: Domitila Berry Home Meds and New Rx's Prescriptions: No Action metoprolol succinate 50 mg tablet extended release 24 hr 1 tab PO DAILY Label Comments: TAKE 1 TABLET BY MOUTH ONCE DAILY aspirin [Aspir-81] 81 mg Tablet,Delayed Release (Dr/Ec) 81 mg PO DAILY levothyroxine 50 mcg tablet 1 tab PO DAILY Label Comments: TAKE 1 TABLET BY MOUTH ONCE DAILY IN THE MORNING ON AN EMPTY STOMACH folic acid 1 mg Tablet 1 mg PO DAILY furosemide 20 mg tablet 1 tab PO DAILY Label Comments: TAKE 1 TABLET BY MOUTH ONCE DAILY lorazepam 1 mg tablet 1 - 2 tab PO DIRECTED Label Comments: TAKE 1 TO 2 TABLETS BY MOUTH 30 MINUTES PRIOR TO MRI multivitamin Capsule 1 cap PO DAILY lisinopril 2.5 mg tablet 1 tab PO DAILY Label Comments: TAKE 1 TABLET BY MOUTH ONCE DAILY memantine 10 mg tablet 5 mg PO BID Label Comments: TAKE 1 TABLET BY MOUTH TWICE DAILY quetiapine 50 mg tablet 1 tab PO DIRECTED Label Comments: TAKE 1 TABLET BY MOUTH IN THE MORNING AND 2 IN THE EVENING potassium chloride 20 mEq tablet extended release 1 tab PO DAILY Label Comments: TAKE 1 TABLET BY MOUTH ONCE DAILY WITH FOOD ascorbic acid (vitamin C) 1,000 mg Capsule 1 mg PO DAILY Discharge Instructions Stand Alone Forms: Post-op Topical Cataract, Danisha Metz (DSU) Discharge Orders Discharge Orders: Discharge Order (Routine); Ordered 06/09/22 Ordered By: Daryn Rosa DS: Diagnosis Discharge Diagnosis (1) Aphakia of right eye: Status: Resolved
--- NOTE | 2022-06-09 14:24 | ROE_ITS ---
Date of service: 06/09/22 Time of Service: 14:24 Operative Note Operative Note DATE OF PROCEDURE: 06/09/22 PRE-OP DIAGNOSIS: Surgical aphakia, right eye POST-OP DIAGNOSIS: same Status post manual small incision cataract surgery, 04/10/2022 PROCEDURE: Secondary intraocular lens implant, right eye SURGEON: Daryn oRsa ANESTHESIA TYPE: Local By Surgeon and MAC Refer to Anesthesia Record ESTIMATED BLOOD LOSS: 0 PATHOLOGY: none sent COMPLICATIONS: None Patient was transported to: same day Patient's condition: stable Implants: Jony & Jony/LD AR40e Indications: Surgical aphakia, right eye Findings: Temporal zonular dialysis from the 8:00 to the 10 o'clock position. Procedure Description: CATARACT SURGERY OPERATIVE REPORT PREOPERATIVE DIAGNOSIS: 1. Surgical aphakia, right eye POSTOPERATIVE DIAGNOSIS: Same OPERATION: 1. Secondary sulcus fixated intraocular lens implant, right eye. IOL: IOL [employer] Car[employer] Operations Inspector/Model: Jony & Jony / LD AR40e IOL Power: + 22 point diopters IOL Serial Number: [id number] Optic Diameter: 6.0mm Haptic/Overall Diameter: 13.0mm PHACO INFO: Byron Firespotter Labsurion Vision System with OZil and Active Fluidics Cumulative Dispersed Energy (CDE): 0 SURGEON: Daryn Rosa MD, FRANKI ANESTHESIA: Monitored Anesthesia Care (MAC), with local sub-tenon's anesthetic infiltration COMPLICATIONS: None SPECIMENS: None INDICATIONS FOR PROCEDURE: The patient is a 76-year old gentleman with history of dense cataract of the left eye, with advanced mature cataract of the right eye with hand motions vision. He underwent uncomplicated cataract surgery in the left eye by phacoemulsification. He did well postoperatively. He underwent manual small incision cataract surgery in the right eye on 04/10/2022, but no lens implant was placed at the time. He is now 2 months postop from his cataract extraction in the right eye and presents for secondary intraocular lens implant, now that the eye has quieted down a bit. PROCEDURE: The correct surgical eye was identified and marked as the right eye and the pupil was dilated in the preoperative area using mydriatics and cycloplegics. The dilated pupil size was seven-point mm. Oral sedation was administered in the form of an Imprimis MKO Melt (midazolam 3mg/ketamine 25mg/ondansetron 2mg). The patient was brought to the operating room where cardiopulmonary monitoring was instituted and surgical time-out was performed, confirming the correct operative eye and IOL power. Topical anesthesia was administered and ophthalmic povidone-iodine 5% was instilled into the conjunctival fornices. Lidocaine gel was applied to the cornea and the rufino-ocular area was prepped with Betadine 10% solution and draped in the usual sterile fashion for intraocular surgery, including an aperture drape. A Tegaderm transparent film dressing was cut in half and used to cover the lashes and lid margins. Care was taken to sequester the lashes and lid margins under the Tegaderm dressing. A lid speculum was placed between the lids of the operative eye and the Byron Lux[employer] Revalia operating microscope was maneuvered into position. A zonular dialysis was noted from the 8:00 to the 10 o'clock position temporally, with the remainder of the capsular bag intact. Jd scissors were then used to make a conjunctival buttonhole approximately 6mm posterior to the limbus in the inferonasal quadrant. Blunt dissection was carried out to expose bare sclera, and a blunt-tipped sub-tenon?s anesthesia cannula was introduced and passed posteriorly along the globe where non-preserv ed plain lidocaine was injected into posterior sub-Tenon?s space. A side-port knife was used to make a paracentesis incision at the 3 o'clock position. Triamcinolone, diluted 4 to 1 in BSS after the diluent was removed from the vial was injected into the anterior chamber. No vitreous was noted. The anterior chamber was then filled with Viscoat. An attempt was made to open the capsular bag, but was unsuccessful as the anterior and posterior leaflets were completely fused together. A 2.4 mm keratome knife was then used to make a 2 plane clear corneal incision at the 12 o'clock position. Provisc was then used to expand the inferior ciliary sulcus. A Jony & Jony Sensar AR40e 3-piece lens was then injected into the anterior chamber. The inferior haptic was then gently placed into the ciliary sulcus, followed by the superior haptic, using a Kuglen hook. A paracentesis was made at the 6 o'clock position and a Kuglen hook was used from inferiorly to help place the superior haptic into the sulcus. A Kuglen hook was then used to sweep the temporal angle to free up the incarcerated iris from the previous surgical incision. The irrigation/aspiration handpiece was then used to slowly remove viscoelastic from the anterior chamber. Healon was injected through the side-port while removing the irrigation/aspiration handpiece to prevent anterior chamber collapse. Care was taken to ensure that all the dispersive viscoelastic was removed from the anterior chamber, except in the area of the zonular dialysis, or it was left in place to tamponade any vitreous. Miostat was then injected under the Healon at the pupillary margin and we waited to allow the Miostat to take effect before using irrigation-aspiration to remove Healon from the anterior chamber. A small aliquot of diluted triamcinolone was then injected to ensure no vitreous in the AC. The incisions were stromally hydrated, and the anterior chamber was reformed using BSS. Diluted triamcinolone was then injected into the anterior chamber, and no vitreous was noted, even temporarily in the area of zonular dialysis. Then 0.5cc of moxifloxacin 1.0mg/ml were injected into the capsular bag and anterior chamber. The incisions were checked with a Weck spear and found to be secure. Several drops of ophthalmic povidone-iodine 5% were then applied to the eye followed by two drops of Imprimis combination pred nisolone/moxifloxacin/nepafenac solution. The drapes were removed and a clear plastic protective eye shield was placed over the eye. The patient was then returned to [facility] in stable condition.
[2022-06-09 14:44] VITALS: BP 132/70; PULSE 60; RESP 16; TEMP 36.5; O2SAT 98
== END 2022-06-09 14:56 | disposition home or self-care (01) ==
LOC: SUR 10:53
PROVIDERS: PCP Family Medicine; Visit Provider Ophthalmology
PROC: (CPT 66985; principal; 2022-06-09 14:30)
DX: H27.01 Aphakia, right eye (principal); I48.91 Unspecified atrial fibrillation
CPT/HCPCS: 66985; V2632; J1100; J2405; J2704